=== PATIENT | female | born 1960 | race Asian ===

== ENCOUNTER 2018-04-26 20:58 | Inpatient (IN) | payer BC ==
[~2018-04-26] VITALS: Ht 154.9 cm; Wt 53.1 kg
--- NOTE | 2018-04-26 21:03 | NUR ---
PT BIBRA FROM HOME C/C PRESSURE LIKE CHEST PAIN, NON RADIATING SINCE 1800. PT STATES FEELING SOB. 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 PER EMS, SBP >200. -N/-V. PT ON MONITOR IN BED 5. AOX4. NAD NOTED. DENIES PAIN AT THIS TIME. WILL CONTINUE TO MONITOR.
--- NOTE | 2018-04-26 21:04 | NUR ---
TECH AT BEDSIDE FOR EKG
[2018-04-26 21:29] LABS: BASOPHILS # (AUTO) 0.1 /CMM (0.0-0.2); BASOPHILS % (AUTO) 1.2 % (0.0-2.0); EOSINOPHILS % (AUTO) 1.6 % (0.0-6.0); HEMATOCRIT 43 % (33-45); HEMOGLOBIN 14.6 g/dL (11.5-14.8); LYMPHOCYTES # (AUTO) 2.3 /CMM (0.8-4.8); LYMPHOCYTES % (AUTO) 39.4 % (20.0-44.0); MEAN CORPUSCULAR HGB CONC 34 g/dl (31.0-36.0); MEAN CORPUSCULAR VOLUME 86 fL (82-100); MONOCYTES # (AUTO) 0.3 /CMM (0.1-1.30); MONOCYTES % (AUTO) 4.8 % (2.0-12.0); NEUTROPHILS # (AUTO) 3.1 /CMM (1.8-8.9); PLATELET COUNT (AUTO) 249 /CMM (150-450); RED BLOOD CELL COUNT(AUTO) 5.06 MIL/uL (4.0-5.2); WHITE BLOOD COUNT (AUTO) 5.8 K/uL (4.3-11.0)
[2018-04-26] MEDS ORDERED: ASPIRIN 325 MG TABLET PO ONE (21:30)
[2018-04-26] MEDS ORDERED: ASPIRIN 81 MG TAB.CHEW ONE (21:32)
--- NOTE | 2018-04-26 21:34 | NUR ---
TECH AT BEDSIDE FOR REPEAT EKG
[2018-04-26 21:38] LABS: CALCIUM, SERUM 9.4 mg/dL (8.5-10.1); CARBON DIOXIDE 31 mmol/L (21-32); CHLORIDE 105 mmol/L (98-107); CREATININE 0.9 mg/dL (0.6-1.3); GLUCOSE 161 mg/dL (74-106); POTASSIUM 3.5 mmol/L (3.5-5.1); SODIUM SERUM 142 mmol/L (136-145); UREA NITROGEN, BLOOD 14 mg/dL (7-18)
--- NOTE | 2018-04-26 21:45 | NUR ---
FAMILY AT BEDSIDE.
[2018-04-26] MEDS ORDERED: ASPIRIN 81 MG TAB.CHEW PO ONE (22:00)
[2018-04-26] MEDS ORDERED: HEPARIN INFUSION/D5W 500 ML IV PRN (22:00)
[2018-04-26] MEDS ORDERED: HEPARIN INFUSION/D5W 500 ML IV ONE (22:20)
[2018-04-26] MEDS ORDERED: HEPARIN SODIUM, PORCINE 5000 UNITS/1 ML VIAL ONE (22:22)
--- NOTE | 2018-04-26 23:04 | NUR ---
REPORT GIVEN TO CHAPO ROLDAN FOR BRONWYN
[2018-04-26 23:30] VITALS: BP 132/86
[2018-04-26] MEDS ORDERED: HYDROCODONE/APAP 5/325MG 1 EACH TABLET PO PRN (23:30)
[2018-04-26] MEDS ORDERED: ACETAMINOPHEN 325 MG TABLET PO PRN (23:30)
[2018-04-26] MEDS ORDERED: MORPHINE SULFATE INJ 2 MG/ML DISP.SYRIN IV PRN (23:30)
[2018-04-26] MEDS ORDERED: NITROGLYCERIN 0.4 MG/TAB BOTTLE SL PRN (23:30)
[2018-04-26] MEDS ORDERED: MAGNESIUM HYDROXIDE 30 ML UDC PO PRN (23:30)
[2018-04-26] MEDS ORDERED: ZOLPIDEM TARTRATE 5 MG TABLET PO PRN (23:30)
[2018-04-26] MEDS ORDERED: CLONIDINE HCL 0.1 MG TABLET PO PRN (23:30)
[2018-04-26] MEDS ORDERED: MAG HYDROX/AL HYDROX/SIMETH 30 ML UDC PO PRN (23:30)
[2018-04-26] MEDS ORDERED: ONDANSETRON HCL/PF 4 MG/2 ML VIAL IVP PRN (23:30)
--- NOTE | 2018-04-26 23:30 | NUR ---
RN NOTES RECEIVED PT. FROM ER WITH DX. OF ACS, A/OX4, SR ON TELE MONITOR HR-89, ON HEPARIN DRIP RUNNING @ 798 UNITS/HR, ADMISSION INSTRUCTION WAS GIVEN, DENIES PAIN, NO SOB, CALL LIGHT WITHIN REACH, SIDERAILSUPX2, CONTINUE TO MONITOR
--- NOTE | 2018-04-27 03:15 | NUR ---
RN NOTES PTT-74.2 DECREASE RATE BY 50UNITS/HR= 748UNITS/HR PER HEPARIN DRIP PROTOCOL
[2018-04-27 03:27] LABS: BASOPHILS # (AUTO) 0.1 /CMM (0.0-0.2); EOSINOPHILS % (AUTO) 0.8 % (0.0-6.0); HEMATOCRIT 40 % (33-45); HEMOGLOBIN 13.5 g/dL (11.5-14.8); LYMPHOCYTES # (AUTO) 3.1 /CMM (0.8-4.8); LYMPHOCYTES % (AUTO) 41.1 % (20.0-44.0); MEAN CORPUSCULAR HGB CONC 34 g/dl (31.0-36.0); MEAN CORPUSCULAR VOLUME 84 fL (82-100); MONOCYTES # (AUTO) 0.4 /CMM (0.1-1.30); MONOCYTES % (AUTO) 5.4 % (2.0-12.0); NEUTROPHILS # (AUTO) 3.9 /CMM (1.8-8.9); NEUTROPHILS % (AUTO) 51.7 % (43.0-81.0); PLATELET COUNT (AUTO) 223 /CMM (150-450); RED BLOOD CELL COUNT(AUTO) 4.81 MIL/uL (4.0-5.2); WHITE BLOOD COUNT (AUTO) 7.5 K/uL (4.3-11.0)
[2018-04-27 03:41] LABS: ALBUMIN 3.8 g/dL (3.4-5.0); BILIRUBIN,TOTAL 0.3 mg/dL (0.2-1.0); CALCIUM, SERUM 8.7 mg/dL (8.5-10.1); CREATININE 0.7 mg/dL (0.6-1.3); MAGNESIUM 2.2 mg/dL (1.8-2.4); PHOSPHORUS 3.3 mg/dL (2.5-4.9); POTASSIUM 3.4 mmol/L (3.5-5.1); TOTAL PROTEIN, SERUM 7.5 g/dL (6.4-8.2)
[2018-04-27 05:53] VITALS: BP 128/81
--- NOTE | 2018-04-27 06:56 | NUR ---
RN NOTES AWAKE, MORNING CARE REDNESS , DENIES PAIN, NO SOB, CALL LIGHT WITHIN REACH, GANESHUPX2, PT. NEEDS ATTENDED
--- NOTE | 2018-04-27 07:00 | NUR ---
MS RN OPENING NOTES RECEIVED PT. IN SITTING IN BED AWAKE AND ALERT. PT ON TELE MONITOR HR-82, ON HEPARIN DRIP RUNNING @ 748 UNITS/HR. SIDERAILSUPX2. PT DENIES PAIN AT THIS TIME. NO S/S OF ACUTE DISTRESS OR NO SOB NOTED. CALL LIGHT WITHIN REACH. WILL CONTINUE TO MONITOR
[2018-04-27 08:00] VITALS: BP 130/88
[2018-04-27] MEDS: PANTOPRAZOLE 40 MG TABLET.DR PO SCH (08:02)
[2018-04-27] MEDS ORDERED: AMLO10TA7 PO (08:15)
[2018-04-27] MEDS ORDERED: VALA500T36 PO (08:15)
[2018-04-27] MEDS: AMLODIPINE BESYLATE 10 MG TABLET PO SCH (08:52)
--- NOTE | 2018-04-27 08:52 | NUR ---
MS RN NOTES AMLODIPINE HOLD PENDING CARDIAC TEST.
[2018-04-27] MEDS ORDERED: PANTOPRAZOLE 40 MG TABLET.DR PO SCH (09:30)
--- NOTE | 2018-04-27 09:30 | NUR ---
MS RN NOTES PT SEEN BY DR. CHAN WITH ORDER TO STOP HEP DRIP. PT SCHEDULED FOR CT CORONARY ANGIOGRAM. PT CURRENTLY NPO. IF CTCA IS NEGATIVE, PT CLEARED FOR D/C HOME. FOLLOW UP WITH DR. CHAN IN 1 WEEK, CALL FOR APPOINTMENT @ [phone].
[2018-04-27] MEDS: METOPROLOL TARTRATE 50 MG TABLET PO SCH ×2 (10:14→21:18)
[2018-04-27] MEDS: ASPIRIN 81 MG TAB.CHEW PO SCH (10:14)
[2018-04-27] MEDS ORDERED: POTASSIUM CHLORIDE 20 MEQ TAB.PRT.SR PO ONE (11:30)
[2018-04-27] MEDS ORDERED: IOHEXOL-350 100 ML VIAL IV ONE (11:35)
[2018-04-27] MEDS ORDERED: IV NS 0.9% 250 ML IV ONE (11:35)
[2018-04-27] MEDS ORDERED: CT SWABBABLE VALVE TRANS SET 1 EA INFUS.SET MC ONE (11:35)
[2018-04-27] MEDS ORDERED: HYDROMORPHONE INJ 0.5 MG/0.5 ML SYRINGE IV PRN (12:00)
[2018-04-27] MEDS ORDERED: NITROGLYCERIN 0.4 MG/TAB BOTTLE SL ONE (12:00)
[2018-04-27] MEDS ORDERED: METOPROLOL TARTRATE INJ 5 MG/5 ML AMPUL IVP PRN ×2 (12:00)
[2018-04-27] MEDS ORDERED: ASPI-1169 PO (12:37)
[2018-04-27 16:00] VITALS: BP 117/57
--- NOTE | 2018-04-27 18:48 | NUR ---
MS RN CLOSING NOTES PT SITTING IN BED AWAKE AND ALERT WITH FAMILY AT BEDSIDE. NO S/S OF ACUTE DISTRESS OR NO SOB NOTED. SIDERAILS UPX2. PT DENIES CHEST PAIN AT THIS TIME. CTCA DONE, SHOWED A 70% LESION IN MID LAD REGION. PT WILL BE TRANSFERRED TO HIGHER LEVEL OF CARE. WAITING ON INSURANCE AUTHORIZATION FOR TRANSFER TO [facility] FOR HEART CATH. CALL LIGHT WITHIN REACH. WILL ENDORSE TO NEXT SHIFT FOR CONTINUED CARE.
--- NOTE | 2018-04-27 19:55 | NUR ---
RN NOTES RECEIVED PATIENT, AWAKE, SITTING IN BED, NO SIGNS OF ACUTE CARDIAC OR RESPIRATORY DISTRESS NOTED, SAFETY MEASURES OBSERVED, NO COMPLAINTS OF ANY DISCOMFORT, UPDATED HER REGARDING TRANSFER FOR HIGHER LEVEL OF CARE, AWAITING FOR NEXT STEP, CALL FROM [facility] OR [facility] IN [place]. WILL CONTINUE TO MONITOR ACCORDINGLY.
[2018-04-27 20:00] VITALS: BP 108/67
[2018-04-27] MEDS: ENOXAPARIN SODIUM 60 MG/0.6 ML DISP.SYRIN SQ SCH (21:16)
[2018-04-27] MEDS: ATORVASTATIN 40 MG TABLET PO SCH (21:17)
[2018-04-28] VITALS (7 sets, daily range): BP systolic 106–128; BP diastolic 66–80
--- NOTE | 2018-04-28 06:48 | NUR ---
RN NOTES PATIENT WAS ABLE TO REST AND SLEEP WITH LONG INTERVALS, NO COMPLAINTS OF PAIN OR DISCOMFORT, AWAITING FOR CONFIRMATION TO TRANSFER TO ANOTHER ACUTE CARE HOSPITAL FOR HIGHER LEVEL OF CARE. WILL ENDORSE TO AM NURSE FOR CONTINUITY OF CARE.
--- NOTE | 2018-04-28 07:20 | NUR ---
RN OPENING NOTES RECEIVED PATIENT IN BED RESTING. A/OX4, ABLE TO MAKE NEEDS KNOWN. NO ACUTE DISTRESS, NO SOB. DENIED PAIN OR DISCOMFORT AT THIS TIME. IV ACCESS INTACT AND PATENT. KEPT PATIENT SAFE AND COMFORTABLE. AWAITING FOR TRANSFER TO A DIFFERENT ACUTE HOSPITAL. BED IN LOW/LOCKED POSIITON, SIDERAILS UPX2, CALL LIGHT IN REACH. WILL CONTINUE TO MONIOTR ACCORDINGLY.
[2018-04-28] MEDS: AMLODIPINE BESYLATE 10 MG TABLET PO SCH (08:18)
[2018-04-28] MEDS: ASPIRIN 81 MG TAB.CHEW PO SCH (08:18)
[2018-04-28] MEDS: PANTOPRAZOLE 40 MG TABLET.DR PO SCH (08:19)
[2018-04-28] MEDS: ENOXAPARIN SODIUM 60 MG/0.6 ML DISP.SYRIN SQ SCH ×2 (08:26→21:06)
[2018-04-28] MEDS: METOPROLOL TARTRATE 50 MG TABLET PO SCH ×2 (08:55→21:07)
--- NOTE | 2018-04-28 18:00 | NUR ---
PER CASE MANAGEMENT, STILL AWAITING FOR TRANSFER TO [facility], WAITING FOR AVAILABLE BED.
--- NOTE | 2018-04-28 18:40 | NUR ---
RN CLOSING NOTES PATIENT IN STABLE CONDITION. ALL NEEDS ATTENDED AND PROVIDED. ALL DUE MEDICATIONS GIVEN ORDERED. KEPT PATIENT SAFE AND COMFORTABLE. BED IN LOW/LOCKED POSITION, SIDERAILS UPX2, HOB ELEVATED. CALL LIGHT IN REACH. WILL ENDORSED TO NIGHT RN FOR BRONWYN.
--- NOTE | 2018-04-28 18:54 | NUR ---
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 PT MADE AWARE AGREED WITH PLAN. CN MADE AWARE. NURSE TO GIVE REPORT TO [phone]. Addendum: 04/28/18 at 1854 by MANUEL PRADHAN CMG Amended: Links added.
--- NOTE | 2018-04-28 19:35 | NUR ---
MS RN NOTE RECEIVED PT IN STABLE CONDITION A&O X4, ABLE TO MAKE NEEDS KNOWN. PT IS CURRENTLY HAVING DINNER WITH SIGNIFICANT OTHER INSIDE HER ROOM. NO SIGNS OF SOB OR DISTRESS, NO INDICATIONS OF PAIN. R ARM 22 H/L INTACT AND PATENT. SAFETY MEASURES IN PLACE: BED LOW, LOCKED, UPPER RAILS UP WITH CALL LIGHT WITHIN REACH. WILL CONT. TO MONITOR.
[2018-04-28] MEDS: ATORVASTATIN 40 MG TABLET PO SCH (21:07)
--- NOTE | 2018-04-29 05:56 | NUR ---
MS RN NOTE PT IN STABLE CONDITION A&O X4, ABLE TO MAKE NEEDS KNOWN. PT IS CURRENTLY ASLEEP. NO SIGNS OF SOB OR DISTRESS, NO INDICATIONS OF PAIN. R ARM 22 H/L INTACT AND PATENT. SAFETY MEASURES IN PLACE: BED LOW, LOCKED, UPPER RAILS UP WITH CALL LIGHT WITHIN REACH. WILL CONT. TO MONITOR AND ENDORSE TO NEXT SHIFT FOR BRONWYN.
--- NOTE | 2018-04-29 07:43 | NUR ---
MS RN OPENING NOTES RECEIVED PATIENT IN STABLE CONDITION. IN NO APPARENT DISTRESS. BEDSIDE RAILS ARE UPX2. BED IS LOCKED AND LOWERED. CALL LIGHT IS WITHIN REACH. IV LINE IS INTACT AND PATENT. WILL CONTINUE TO MONITOR PATIENT.
[2018-04-29 08:00] VITALS: BP 114/70
[2018-04-29] MEDS: ASPIRIN 81 MG TAB.CHEW PO SCH (08:07)
[2018-04-29] MEDS: PANTOPRAZOLE 40 MG TABLET.DR PO SCH (08:08)
[2018-04-29] MEDS: ENOXAPARIN SODIUM 60 MG/0.6 ML DISP.SYRIN SQ SCH (08:12)
[2018-04-29] MEDS: AMLODIPINE BESYLATE 10 MG TABLET PO SCH (08:14)
[2018-04-29] MEDS: METOPROLOL TARTRATE 50 MG TABLET PO SCH ×2 (08:14→21:13)
--- NOTE | 2018-04-29 18:19 | NUR ---
MS RN CLOSING NOTES PATIENT IS IN STABLE CONDITION. IN NO APPARENT DISTRESS. BEDSIDE RAILS ARE UPX2. BED IS LOCKED AND LOWERED. CALL LIGHT IS WITHIN REACH. IV LINE IS INTACT AND PATENT. ALL NEEDS WERE MET. WILL ENDORSE CARE TO ENAMEL SPRAYER NURSE FOR BRONWYN.
[2018-04-29 20:00] VITALS: BP 108/72
--- NOTE | 2018-04-29 20:54 | NUR ---
MS RN NOTE RECEIVED PT IN STABLE CONDITION, A&OX4, ABLE TO MAKE NEEDS KNOWN. NO SIGNS OF SOB OR DISTRESS. PT W/ STEADY GAIT. AT BEDSIDE.ALL CURRENT NEEDS MET. SAFETY PRECAUTIONS IN PLACE: BED LOW, LOCKED, UPPER RAILS UP, CALL LIGHT WITHIN REACH. WILL CONT TO MONITOR.
[2018-04-29] MEDS: ATORVASTATIN 40 MG TABLET PO SCH (21:13)
--- NOTE | 2018-04-30 05:48 | NUR ---
MS RN NOTE GAVE REPORT TO [facility] FOR BRONWYN. SPOKE WITH CHAPO MCCLELLAN.
--- NOTE | 2018-04-30 05:53 | NUR ---
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 FRANCISCO ([facility] PERSONNEL) STATED THAT TRANSPORT WAS ARRANGED FOR 05/07/18 NOT TODAY, 04/30/18.
--- NOTE | 2018-04-30 05:55 | NUR ---
MS RN NOTE INFORMED WAGNER (CHARGE NURSE) OF TRANSPORT ISSUE. CHARGE NURSE ATTEMPTED TO CONTACT MANUEL PRADHAN (CALL CENTER RECRUITER) WHO MADE ARRANGEMENT FOR ORIGINAL TRANSPORT. LEFT MESSAGE WITH NO CALL BACK. CHARGE NURSE SPOKE WITH SHEILA (NURSING CUSTOMER OPERATIONS SPECIALIST) AND WAS APPROVED BY CUSTOMER OPERATIONS SPECIALIST TO DOWNGRADE PT'S TRANSPORT FROM ACLS TO A BLS TRANSPORT. ARRANGED TRANSPORT [facility]IA [facility] SPOKE WITH FRANCISCO FOR A CAR REPAIRMAN TIME OF [id number].
--- NOTE | 2018-04-30 06:30 | NUR ---
MS RN NOTE CALLED [facility] SPOKE WITH MYELIN TO LET HER KNOW PT WILL BE LATE.
--- NOTE | 2018-04-30 06:37 | NUR ---
MS RN NOTE PT PICKED UP BY [facility] PERSONNEL. GAVE REPORT TO DOMINIQUE. PT LEFT IN STABLE CONDITION A&O X4. NO SIGNS OF SOB OR DISTRES. ALL BELONGINGS SIGNED FOR. LEFT VIA RJIMI. DISCHARGE PAPERS SIGNED.
[2018-04-30 06:58] VITALS: BP 110/70
== END 2018-04-30 16:54 | DRG 303 ==
LOC: ER 21:03 → TELE 22:53 → MED 04-27 10:22 → UNDODISIN 04-28 14:00
PROVIDERS: ADMIT Nurse Practitioner Acute Care
DX: I25.10 Atherosclerotic heart disease of native coronary artery without angina pectoris (principal); D68.59 Other primary thrombophilia; I10 Essential (primary) hypertension
CPT/HCPCS: 36415; 71045-TC; 75574; 80048-TC; 80053-TC; 80061-TC; 83735-TC; 84100-TC; 84484-TC; 85025-TC; 85730-TC; 87081-TC; 93307-TC; G0378; J1644; J1650; J7050; Q9967